=== PATIENT | female | born 2000 | race Caucasian/White ===

== ENCOUNTER 2022-06-11 21:11 | Emergency (ER) | payer OTHER, SELFPAY ==
--- NOTE | ~2022-06-11 | XR_ITS ---
EXAMINATION: XR FINGER, RIGHT CLINICAL INFORMATION: Injury. COMPARISON: None available. TECHNIQUE: 3 views of the right fingers. FINDINGS: The bones and soft tissues are normal. No fracture. Alignment is anatomic. Joint spaces are maintained. XR/XR finger RT min 2V IMPRESSION: Normal finger radiographs.
[2022-06-11 21:21] VITALS: BP 127/67; PULSE 72; RESP 18; TEMP 37.1; O2SAT 98; BMI 33.5
--- NOTE | 2022-06-11 23:52 | ED_ITS ---
HPI - Extremity Problem General Chief complaint: Extremity Injury, Upper Stated complaint: Thumb injury on right Time Seen by Provider: 06/11/22 23:46 Source: patient, RN notes reviewed and old records reviewed Mode of arrival: ambulatory Limitations: no limitations History of Present Illness HPI Narrative: 22-year-old female presents for evaluation of pain to her right thumb. She reports that she slipped and fell to the ground about 3 hours ago. She states that her right thumb bent backwards The pain radiates into her hand Denies any other injuries from the fall. Did not hit her head or lose consciousness Her pain is a 07/25 Related Data Allergies Allergy/AdvReac Type Severity Reaction Status Date / Time No Known Allergies Allergy Verified 06/11/22 21:25 Review of Systems Musculoskeletal: Musculoskeletal: Reports arthralgias, Reports joint swelling and Reports limited range of motion Physical Exam Vital Signs: Vital Signs: Last Vital Signs Temp 98.7 F 06/11/22 21:21 Pulse 72 06/11/22 21:21 Resp 18 06/11/22 21:21 BP 127/67 06/11/22 21:21 Pulse Ox 98 06/11/22 21:21 O2 Del Method Room Air 06/11/22 21:21 BMI result Body Mass Index 33.5 Const: General: healthy appearing, comfortable, no acute distress, alert and awake Nutritional Appearance: well nourished Orientation/consciousness: patient oriented x3 Resp: Effort & Inspection: normal respiratory effort, able to speak in co mplete sentences and not labored Skin: General skin exam: no rashes or lesions noted and elasticity normal Neuro: General: patient oriented x3 Cognition (Neuro): normal cognition Extrem: Other: Mild tenderness at the right 1st MCP joint. No significant edema. No open wounds or lesions. Patient has very slightly limited range of motion with opposition but has good flexion and extension. No tenderness of the right wrist or scaphoid tenderness. Medical Decision Making Medical Decision Making MDM Narrative: Patient had a minor right thumb injury, x-rays negative. Will put her in a premade thumb spica splint. X-ray results were discussed with the patient as well as rest, ice, compression, elevation. She may also use NSAIDs for her discomfort Differential Diagnosis Thumb fracture Thumb dislocation Thumb sprain Contusion Independent Interpretation I performed an independent interpretation of an: Plain X-Ray (No acute fracture of the right thumb) Discharge Plan Discharge Clinical Impression: Sprain of hand, thumb, right Patient Disposition: Home, Self-Care Instructions: Finger Sprain (ED) Additional Instructions: Your x-ray was negative for fracture. You likely have a sprained thumb Use ibuprofen/Tylenol for pain. Ice the area before hours for the next 2 days Elevate your hand above your heart while resting
--- NOTE | 2022-06-12 00:02 | PC.NURSE ---
Splint applied to pt right hand by Dennis Tech
== END 2022-06-12 00:02 | disposition home or self-care (01) ==
PROVIDERS: Emergency Provider Emergency Medicine
DX: S63.601A Unspecified sprain of right thumb, initial encounter (principal); W18.30XA Fall on same level, unspecified, initial encounter; Y93.9 Activity, unspecified; Y92.019 Unspecified place in single-family (private) house as the place of occurrence of the external cause; Y99.9 Unspecified external cause status
CPT/HCPCS: 29125; 73140; 99282; 99284